=== PATIENT | female | born 1980 | race Caucasian/White ===

== ENCOUNTER 2024-12-29 00:27 | Emergency (ER) | payer OTHER, SELFPAY ==
[2024-12-29 00:31] VITALS: BP 140/85
[2024-12-29 01:02] VITALS: BMI 19.7
--- NOTE | 2024-12-29 02:49 | ED.MUSCINJ ---
HPI-Injury
General
Chief Complaint: Musculo-Skeletal Complaint
Time Seen by Provider: 12/29/24 01:13
History of Present Illness-Injury
Initial Injury comments:
44-year-old female without significant past medical history presenting for left wrist pain. Patient reports prior to arrival she fell onto her left forearm with pain in her left wrist, radiating up the forearm. She notes that she is still able to
move the wrist and the forearm, however reports pain laterally. Denies any additional injuries from the fall. Denies numbness or tingling. She did not take any medications for pain. Denies additional acute medical complaints
Past History
Past History
ED Past Medical History: Negative Arrthythmia, Asthma, Fibromyalgia, GERD, HTN, Hypercholesterolemia, IDDM or NIDDM
ED Past Surgical History: Gynecological
Social History
Tobacco: Smoker
Alcohol: None
Drug: None
Personal:
Living: with family
Employment: Employed
Family History
Family History: Hypertension
Phy Exam
Physical Exam
Physical Exam:
General: Well-appearing, no clinical signs of dehydration, nontoxic and in no acute distress
HEENT: protecting airway
Neck: appears supple
CV: Normal heart rate
Resp: No accessory muscle use, no increased work of breathing
Abd: No distention
Extremities: No obvious deformity to the left wrist or forearm. No swelling. Mild ecchymosis at the left lateral wrist with skin intact. Reproducible tenderness to the wrist joint. No erythema or warmth
Neuro: alert, no focal neurologic deficit
: deferred
Rectal: deferred
Psych: Normal affect
Skin: Intact
Injury Course
Orders/Labs/Results
Orders:
Orders
12/29/24 00:35
Forearm, Left 2 View [CR Forearm - Left 2 View] Urgent
Comment:
Reason For Exam: injury
12/29/24 01:48
Wrist, Left 3 Views CR [CR Wrist - Left Min 3 Views] Urgent
Comment:
Reason For Exam: fall, pain
MDM/Problems Addressed
MDM/Problems Addressed:
44-year-old female presenting to the emergency department with left wrist pain after a fall. Vital signs are significant for mild tachycardia.
On exam patient is resting comfortably, no acute distress or discomfort. Reassuring examination of the left wrist and forearm. No obvious foreign or swelling. No infectious findings. No neurovascular compromise. Lower suspicion for fracture or
malalignment, however given bony tenderness on palpation, will plan for x-ray imaging. Patient declining any pain medication.
02:50- X-ray without fracture or malalignment. Feel stable for discharge. Wrist splint placed. Advised Tylenol or Motrin as needed for pain and ice for swelling. Patient verbalized understanding.
*Pulse Oximetry
SaO2: 95
Oxygen Mode of Delivery: Room air
Patient hypoxic: no
*Critical Care Note
Total Time (30-74mins, 75-104mins- exclusive of procedures): Not Applicable
ED Attending Note
-
Portions of this chart may have been created with voice recognition software.� Occasional wrong word or��sound alike� substitutions may have occurred due to the inherent limitations of voice recognition software.
Discharge Plan
Departure
Patient Disposition: Home (Routine Discharge)
Date of Disposition: 12/29/24
Time of Disposition: 02:47
Patient with high blood pressure during this ER visit?: No
Condition: Good
Discharge Problem:
Left wrist sprain
Instructions: Wrist Sprain ED
Prescriptions:
No Action
No Current Medications
0
Referrals:
Lorin Rosales MD [Family Provider, Internal Medicine]
Ricardo King MD [Active, Orthopedics]
Activity Restrictions/Additional Instructions:
You were seen in the emergency department for left wrist pain
You were found to have normal x-rays of your wrist and forearm. Please take Tylenol and Motrin as needed for pain and maintain a splint for compression.
Please follow-up closely with your primary care physician.
Return to the emergency department for any worsening of your symptoms, or any development of chest pain, difficulty breathing, abdominal pain with persistent vomiting and inability to tolerate food or liquid by mouth (concern for dehydration),
weakness, headache or confusion, fever greater than 100.4, or any additional symptoms that are concerning to you.
Thank you for choosing [facility].
Interventions
Interventions:
*Risk Screen - Suicide Last Done: 12/29/24 00:31
*General Assessment Last Done: 12/29/24 00:31
*Neglect/Abuse Screening Last Done: 12/29/24 00:31
*ED- Fall Risk Assessment Last Done: 12/29/24 00:31
*ED COVID-19 Vaccine History Last Done: 12/29/24 00:31
*ED Influenza Vaccine History Last Done: 12/29/24 00:31
ED-Musculoskeletal Assessment Last Done: 12/29/24 01:04
Discharge Date and Time
Print Language: OMANI
== END 2024-12-29 03:00 | disposition home or self-care (01) ==
LOC: EMR 00:27
PROVIDERS: EMERGENCY PHYSICIAN Student in an Organized Health Care Education/Training Program; FAMILY PHYSICIAN Internal Medicine
DX: S63.502A Unspecified sprain of left wrist, initial encounter (principal); W19.XXXA Unspecified fall, initial encounter; F17.200 Nicotine dependence, unspecified, uncomplicated
CPT/HCPCS: 29125; 99283; 73090; 73110